=== PATIENT | female | born 1955 | race Caucasian/White ===

== ENCOUNTER 2024-02-17 18:09 | Emergency (ER) | payer MEDICARE, SELFPAY ==
[2024-02-17 18:09] VITALS: BP 125/84; PULSE 105; RESP 18; TEMP 36.6; O2SAT 95; BMI 22.6
--- NOTE | 2024-02-17 18:11 | EKG12_ITS ---
Test Reason : CP Blood Pressure : */* mmHG Vent. Rate : 85 BPM Atrial Rate : 85 BPM P-R Int : 140 ms QRS Dur : 78 ms QT Int : 400 ms P-R-T Axes : 80 79 71 degrees QTcB Int : 476 ms Normal sinus rhythm Normal ECG Confirmed by ANASTASIA MORRIS, NIURKA ([id number]), dictionary editor FELICIA LUJAN ([id number]) on 02/19/2024 11:29:13 AM Referred By: Confirmed By: NIURKA OCONNOR MD
--- NOTE | 2024-02-17 18:40 | RAD_ITS ---
STUDY: X-RAY CHEST REASON FOR EXAM: Female, 68 years old. Chest pain TECHNIQUE: Single AP portable view of the chest. COMPARISON: None. FINDINGS: The lungs are clear and expanded. There is no demonstrated pleural abnormality. Normal size heart. Normal mediastinum and saman. Normal visualized pulmonary arteries. Normal visualized aortic arch and descending thoracic aorta. There is a levoscoliosis of the thoracic spine. Normal visualized ribs, clavicles, and shoulders. There is no demonstrated abnormality of the visualized soft tissue structures of the upper abdomen. RAD/Chest 1 View (Portable) IMPRESSION: No acute cardiopulmonary disease. Electronically Signed: Steve Boles MD at 19:53 EDT ,
[2024-02-17 18:50] LABS: Absolute Lymphocyte Count 1.88 X10^3/uL (0.83-4.51); Absolute Neutrophil Count 3.9 X10^3/uL (2.0-7.7); Basophil# 0.04 X10^3/uL; Basophil% 0.6 % (0-1); Eosinophil# 0.03 X10^3/uL; Eosinophils% 0.5 % (0-5); Hematocrit 41.7 % (37-47); Hemoglobin 13.8 g/dL (12.0-15.0); Lymphocyte # 1.88 X10^3/ul (0.83-4.51); Lymphocyte % 30.2 % (19-41); Mean Corp Hgb Conc 33.1 g/dL (32-36); Mean Corpuscular Hgb 30.9 pg (27.0-32.0); Mean Corpuscular Volume 93.5 fL (81-99); Monocyte# 0.35 X10^3/uL; Monocyte% 5.6 % (0-10); NRBC Flagged by Analyzer 0 % (0-5); Neutrophil # 3.92 X10^3/uL (2.7-7.7); Neutrophil % 62.9 % (47-70); Platelet Count 205 K/mm3 (150-450); RBC Distribution Width CV 11.9 % (11.6-14.6); RBC Distribution Width SD 41.1 fl (35.1-43.9); Red Blood Count 4.46 M/mm3 (4.2-5.4); White Blood Count 6.2 K/mm3 (4.4-11.0)
--- NOTE | 2024-02-17 19:01 | ED.VIS.CHEST ---
HPI History of Present Illness Chief Complaint: Chest Pain Informant: patient Narrative Narrative: 58-year-old female with a single episode of substernal chest discomfort that radiated up to her jaw, it is gone at the time of evaluation, lasted maybe 35 minutes started while she was walking out of the store. She denies any other associated symptoms such as nausea, vomiting, palpitations, near-syncope or syncope, sweats, shortness of breath. The discomfort was nonpleuritic. She does not have a history of heart problems. While she was initially here in the ER and had an EKG at the time of arrival, she was still having the discomfort but it is now gone. [facility] Medical History (Updated 02/17/24 @ 22:[address] Steve Song MD) Non Hodgkin's lymphoma Home Medications ?Medication ?Instructions ?Recorded ?Last Taken ?Type amitriptyline 10 mg tablet 10 mg PO QHS 07/06/15 Unknown History amitriptyline 25 mg tablet 25 mg PO QHS 07/06/15 Unknown History hydrocodone 5 mg-acetaminophen 300 1 tab PO Q6H PRN PRN Pain 07/06/15 Unknown History mg tablet (Vicodin) [id number] acid 200 1 ea PO DAILY 07/06/15 Unknown History mcg-herbal no.245 37.5 mg chewable tablet ondansetron 4 mg disintegrating 4 mg PO Q8H PRN PRN Nausea #10 tabs 07/06/15 Unknown Rx tablet Allergy/AdvReac Type Severity Reaction Status Date / Time aspirin Allergy Shortness Verified 02/17/24 18:09 of breath gabapentin (From Neurontin) Allergy Unknown Verified 02/17/24 18:09 Social History Smoking Status: Never smoker ROS ROS ED Constitutional Constitutional ED: Denies chills, fever(s) or sweats Eyes Eyes: Denies change in vision or diplopia ENT ENT ED: Denies rhinorrhea or sore throat Cardiovascular Cardiovascular: Reports as per HPI, chest pain and radiating jaw, neck or arm pain; Denies lightheadedness, palpitations or syncope Respiratory/Chest Respiratory/Chest: Denies cough or dyspnea Gastrointestinal Gastrointestinal: Denies abdominal pain, diarrhea, nausea or vomiting Genitourinary Genitourinary ED: Denies dysuria or hematuria Musculoskeletal Musculoskeletal: Denies back pain or neck pain Integumentary Denies abscess or rash Neurologic Neurologic: Denies headache(s), paresthesias or weakness Psychiatric Psychiatric: Denies anxiety or suicidal thoughts EXAM Physical Exam Const Vital Signs: 02/17/24 18:09 02/17/24 18:11 02/17/24 18:11 Temperature 97.9 F Temperature Source Oral Pulse Rate 105 H Respiratory Rate 18 Respiratory Effort Normal Blood Pressure 125/84 H Blood Pressure Mean 97 Pulse Ox 95 Oxygen Delivery Method Room Air Room Air 02/17/24 19:09 02/17/24 20:00 02/17/24 21:00 Temperature Temperature Source Pulse Rate 83 81 77 Respiratory Rate 18 19 H 19 H Respiratory Effort Blood Pressure 107/75 122/59 H 127/70 H Blood Pressure Mean 85 80 89 Pulse Ox 94 93 94 Oxygen Delivery Method Room Air Room Air Room Air Positive well nourished and well developed General Appearance ED: well developed and NAD HEENT Reports moist mucous membranes normocephalic and atraumatic Eyes PERRL and EOMs intact bilaterally Neck full ROM and supple Resp normal respiratory effort and clear to auscultation bilaterally Cardio regular rate, regular rhythm and no murmurs GI non-tender and non-distended Auscultation: normoactive bowel sounds Palpation: soft Back/Spine no CVA tenderness General Back: other FROM Extremity normal to inspection Extremity Narrative: No calf tenderness General Extremety ED: Negative for edema, pulses abnormal or tenderness General Extremity: Negative for edema or pulses abnormal Neuro oriented x3, CN's II-XII intact bilaterally and no sensory deficits noted Sensorium / Orientation: awake and alert Motor Exam: strength 5/5 throughout Skin no rashes or lesions noted and no wounds Heart Score History: Moderately Suspicious ECG: Normal Age: >/= 65 years Risk Factors: No Risk Factors Troponin: </= Normal Limit Score: 3 MDM MDM MDM Narrative Medical decision making narrative: On my evaluation the patient is symptom-Free with a normal EKG was performed while she was having the symptoms. Chest x-ray 1 view on my interpretation is normal, arguing against aortic dissection, pneumothorax, pneumonia. Her initial troponin is normal in the single digits and the rest of her labs are normal. We observed her for a 2-hour troponin, which came back a little lower than the initial and she remained symptom-free. I believe she is stable for discharge home, with a low heart score of 3 asymptomatic and 2 sequential negative troponins and a normal EKG. She is comfortable with that plan of following up. Lab Data Attestation: I reviewed the patient's lab results. Labs: Laboratory Results - last 24 hr 02/17/24 02/17/24 18:30 20:30 WBC 6.2 RBC 4.46 Hgb 13.8 Hct 41.7 MCV 93.5 MCH 30.9 MCHC 33.1 RDW Std Deviation 41.1 RDW Coeff of Caren 11.9 Plt Count 205 MPV 10.0 Immature Gran % (Auto) 0.200 Neut % (Auto) 62.9 Lymph % (Auto) 30.2 [place] % (Auto) 5.6 Eos % (Auto) 0.5 Baso % (Auto) 0.6 Absolute Neuts (auto) 3.9 Absolute Lymphs (auto) 1.88 Nucleated RBC % 0 Sodium 140 Potassium 3.9 Chloride 107 Carbon Dioxide 27.0 Anion Gap 6 BUN 12 Creatinine 0.83 Estim Creat Clear Calc 67.26 Est GFR (MDRD) Af Amer 89 Est GFR (MDRD) Non-Af 73 BUN/Creatinine Ratio 14.5 Glucose 101 Calcium 9.1 Troponin I High Sens 5 4 Radiography Chest X-Ray - ED: 1 View, Read by ED Physician, No Acute Disease, Chronic Changes, No Infiltrates and - (Narrow mediastinum) Diagnostic Testing: Clinical Impression(s) from Imaging Studies Chest X-Ray 02/17/24 18:40 IMPRESSION: No acute cardiopulmonary disease. Electronically Signed: Steve Boles MD at 19:53 EDT , Rhythm Strip Rhythm Strip: Sinus Rhythm Rate: 85 Ectopy: None EKG Initial EKG: Attestation: I personally reviewed and interpreted this EKG as follows: Interpretation: Sinus Rhythm and No Acute Injury Pattern Comments: Nml axis & intervals; nml EKG Discharge Plan Triage Chief Complaint: Chest Pain ED Provider: Steve Song Dx/Rx/DC Orders Clinical Impression: Non-cardiac chest pain Instructions: ED Chest Pain, Noncardiac Prescriptions: No Action amitriptyline 25 MG tablet 25 mg PO QHS Patient Comments: 35mg TOTAL amitriptyline 10 MG tablet 10 mg PO QHS Patient Comments: 35mg TOTAL hydrocodone-acetaminophen [Vicodin] 1 EACH tablet 1 tab PO Q6H PRN PRN (Reason: Pain) lymtnlcw-[id number]-NI-herbal no.245 1 EACH tablet,chewable 1 ea PO DAILY ondansetron 4 MG tablet 4 mg PO Q8H PRN PRN (Reason: Nausea) Qty: 10 0RF Primary Care Provider: Lisseth Mills Referrals: Lisseth Mills MD [Primary Care Provider] - 1-2 Weeks Print Language: [place] Disposition Disposition: Home, Self Care
[2024-02-17 19:07] LABS: Anion Gap 6 (5-15); BUN 12 mg/dL (7-18); BUN/Creat Ratio 14.5 RATIO (10-20); Calcium,Total 9.1 mg/dL (8.5-10.1); Chloride 107 mmol/L (98-107); Creatinine, Serum 0.83 mg/dL (0.55-1.02); EST Glomerular Filtration Rate 73 mL/min (>60); Est Glom Filt Rate - Afr Amer 89 mL/min (>60); Estimated Creatinine Clearance 67.26 ml/min; Glucose 101 mg/dL (74-106); Potassium 3.9 mmol/L (3.5-5.1); Sodium Level 140 mmol/L (136-145); Troponin-I HS (w/2H Reflex) 5 pg/mL (3.0-54.0)
[2024-02-17 19:09] VITALS: BP 107/75; PULSE 83; RESP 18; O2SAT 94
[2024-02-17 20:00] VITALS: BP 122/59; PULSE 81; RESP 19; O2SAT 93
[2024-02-17 20:43] LABS: Reflex Troponin-HS? (from REC) Y
[2024-02-17 21:00] VITALS: BP 127/70; PULSE 77; RESP 19; O2SAT 94
[2024-02-17 21:27] LABS: Troponin-I HS 4 pg/mL (3.0-54.0)
[2024-02-17 22:01] VITALS: BP 118/75; PULSE 86; RESP 12; O2SAT 94
[2024-02-17 22:05] VITALS: BP 117/79; PULSE 89; RESP 16; TEMP 36.6; O2SAT 96
== END 2024-02-17 22:06 | disposition home or self-care (01) ==
PROVIDERS: Emergency Provider Emergency Medicine; PCP Internal Medicine; Visit Provider Emergency Medicine
DX: R07.89 Other chest pain (principal); Z85.72 Personal history of non-Hodgkin lymphomas
CPT/HCPCS: 71045; 80048; 84484; 85025; 93005; 99284; A4216